=== PATIENT | female | born 1980 | race Caucasian/White ===

== ENCOUNTER 2017-03-31 10:29 | Emergency (ER) | payer MEDICAID ==
[2016-02-03 06:25] VITALS: BMI 47.1
[~2017-03-31 10:29] MED LIST: ATIVAN1 MG PO; BENICAR20 MG PO; HYDROCODONE-APA1 TAB PO; IPRAT-ALBUT 0.5-3 ML UPD; LEVAQUIN500 MG PO; LYRICA75 MG PO; PROVENTIL HFA6.7 GM INH; SAVELLA50 MG PO; STERAPRED DS 1010 MG PO; SYMBICORT 16010.2 GM INH; TESSALON PERLE100 MG PO; VITAMIN D31000 UNI2 PO
== END 2017-03-31 13:33 | disposition home or self-care (01) ==
LOC: D.ER 10:29
DX: O26.893 Other specified pregnancy related conditions, third trimester (principal); Z3A.35 35 weeks gestation of pregnancy; L02.416 Cutaneous abscess of left lower limb; I10 Essential (primary) hypertension; J44.9 Chronic obstructive pulmonary disease, unspecified

== ENCOUNTER 2017-05-02 15:21 | Emergency (ER) | payer MEDICAID ==
[2016-02-03 06:25] VITALS: BMI 47.1
== END 2017-05-02 18:35 | disposition home or self-care (01) ==
LOC: D.ER 15:21
DX: O90.0 Disruption of cesarean delivery wound (principal); J44.9 Chronic obstructive pulmonary disease, unspecified; I10 Essential (primary) hypertension

== ENCOUNTER 2017-09-23 16:44 | Emergency (ER) | payer MEDICAID ==
[2016-02-03 06:25] VITALS: BMI 47.1
== END 2017-09-23 20:19 | disposition home or self-care (01) ==
LOC: D.ER 16:44
DX: S50.01XA Contusion of right elbow, initial encounter (principal); S40.011A Contusion of right shoulder, initial encounter; W18.2XXA Fall in (into) shower or empty bathtub, initial encounter; Y93.E1 Activity, personal bathing and showering; Y92.012 Bathroom of single-family (private) house as the place of occurrence of the external cause; J44.9 Chronic obstructive pulmonary disease, unspecified; I10 Essential (primary) hypertension

== ENCOUNTER → 2017-09-30 08:00 | Outpatient (CLI) | payer MEDICAID ==
[2016-02-03 06:25] VITALS: BMI 47.1
== END | disposition home or self-care (01) ==
LOC: D.US 08:00
DX: I10 Essential (primary) hypertension (principal)

== ENCOUNTER → 2018-02-01 17:30 | Outpatient (CLI) | payer MEDICARE ==
[2016-02-03 06:25] VITALS: BMI 47.1
[~2018-02-01 17:30] MED LIST changes: +ALEVE220 MG PO; +AMITRIPTYLINE100 MG PO; +FAMOTIDINE10 MG PO; +FLUTICASONE PRO16 GM NASAL; +HYDRALAZINE HCL25 MG PO; +IMITREX50 MG PO; +LYRICA100 MG PO; +NORMODYNE / TR300 MG PO; +PLAQUENIL200 MG PO; +PREVACID SOLUTA30 MG PO; +ROBAXIN500 MG PO
[2018-02-01 19:38] LABS: CALC OSMOLALITY 282 mosm/kg (275-300); CALCIUM 9.2 mg/dL (8.5-10.1); CARBON DIOXIDE 20.4 mmol/L (21.0-32.0); CHLORIDE - SERUM 105 mmol/L (98-107); CREATININE - SERUM 0.8 mg/dL (0.6-1.3); POTASSIUM - SERUM 4.3 mmol/L (3.5-5.1); SODIUM 140 mmol/L (136-145); UREA NITROGEN 12 mg/dL (7-18); eGFR NON AFRICAN AMERICAN 86 mL/min (90-120)
[2018-02-01 19:46] LABS: GLUCOSE 175 mg/dL (74-106)
== END | disposition home or self-care (01) ==
LOC: D.LABREF 17:30
PROVIDERS: Internal Medicine Cardiovascular Disease
DX: I10 Essential (primary) hypertension (principal)

== ENCOUNTER 2018-02-24 18:29 | Emergency (ER) | payer MEDICARE ==
[~2018-02-24] VITALS: Ht 170.2 cm; Wt 140.9 kg
[~2018-02-24 18:29] MED LIST changes: -ALEVE220 MG PO; -AMITRIPTYLINE100 MG PO; -FAMOTIDINE10 MG PO; -FLUTICASONE PRO16 GM NASAL; -HYDRALAZINE HCL25 MG PO; -IMITREX50 MG PO; -LYRICA100 MG PO; -NORMODYNE / TR300 MG PO; -PLAQUENIL200 MG PO; -PREVACID SOLUTA30 MG PO; -ROBAXIN500 MG PO
[2018-02-24 18:35] VITALS: Ht 170.2 cm; Wt 140.9 kg
[2018-02-24] MEDS ORDERED: AMITRIPTYLINE100 MG PO (18:37)
[2018-02-24] MEDS ORDERED: FLUTICASONE PRO16 GM NASAL (18:38)
[2018-02-24] MEDS ORDERED: FAMOTIDINE10 MG PO (18:38)
[2018-02-24] MEDS ORDERED: HYDRALAZINE HCL25 MG PO (18:39)
[2018-02-24] MEDS ORDERED: HYDROCODONE-APA1 TAB PO (18:39)
[2018-02-24] MEDS ORDERED: PREVACID SOLUTA30 MG PO (18:40)
[2018-02-24] MEDS ORDERED: NORMODYNE / TR300 MG PO (18:41)
[2018-02-24] MEDS ORDERED: ROBAXIN500 MG PO (18:42)
[2018-02-24] MEDS ORDERED: IMITREX50 MG PO (18:42)
[2018-02-24] MEDS ORDERED: ALEVE220 MG PO (18:43)
[2018-02-24] MEDS ORDERED: PLAQUENIL200 MG PO (18:43)
[2018-02-24] MEDS ORDERED: LYRICA100 MG PO (18:44)
[2018-02-24 19:51] LABS: BASOPHILS 0.5 % (0-2); EOSINOPHILS 3.9 % (0-7); HEMATOCRIT 39.5 % (36.0-48.0); HEMOGLOBIN 12.5 g/dL (12-16); IMMATURE GRANULOCYTES 0.1 % (0-5); LYMPHOCYTES 33.4 % (15-50); MCH 27.7 pg (26.0-34.0); MCHC 31.6 g/dL (31.0-37.0); MCV 87.4 fL (80.0-100.0); MEAN PLATELET VOLUME 11.2 fL (7.4-10.4); MONOCYTES 6.2 % (2-11); NEUTROPHILS 55.9 % (40-80); PLATELET COUNT 303 10x3/uL (130-400); RBC 4.52 10x6/uL (4.00-5.40); RDW 14.9 % (11.5-14.5); WBC 8.8 10x3/uL (4.8-10.8)
[2018-02-24 20:11] LABS: APTT 31.7 SECONDS (22.8-39.4)
[2018-02-24 20:12] LABS: INR 1.18 (0.85-1.17); PROTIME 14.6 SECONDS (11.6-15.0)
[2018-02-24 20:18] LABS: ALBUMIN 3.5 g/dL (3.4-5.0); ALKALINE PHOSPHATASE 119 U/L (46-116); ALT (SGPT) 21 U/L (10-68); BILIRUBIN - TOTAL 0.19 mg/dL (0.2-1.3); CALC OSMOLALITY 285 mosm/kg (275-300); CALCIUM 8.7 mg/dL (8.5-10.1); CARBON DIOXIDE 27.2 mmol/L (21.0-32.0); CHLORIDE - SERUM 108 mmol/L (98-107); GLUCOSE 130 mg/dL (74-106); POTASSIUM - SERUM 3.6 mmol/L (3.5-5.1); SODIUM 143 mmol/L (136-145); UREA NITROGEN 10 mg/dL (7-18); eGFR NON AFRICAN AMERICAN 67 mL/min (90-120)
[2018-02-24 20:29] LABS: CKMB 0.5 U/L (0.0-3.6); LIPASE 149 U/L (73-393)
[2018-02-24 20:30] LABS: TROPONIN-I < 0.017 ng/mL (0.000-0.060)
[2018-02-25 00:34] VITALS: BP 142/85
== END 2018-02-25 00:35 | disposition home or self-care (01) ==
LOC: D.ER 18:29
PROVIDERS: Family Medicine
DX: I11.0 Hypertensive heart disease with heart failure (principal); I50.20 Unspecified systolic (congestive) heart failure; G62.9 Polyneuropathy, unspecified; J44.9 Chronic obstructive pulmonary disease, unspecified; K21.9 Gastro-esophageal reflux disease without esophagitis; F17.200 Nicotine dependence, unspecified, uncomplicated; R00.0 Tachycardia, unspecified

== ENCOUNTER 2018-06-18 11:48 | Emergency (ER) | payer MEDICARE ==
[~2018-06-18] VITALS: Ht 170.2 cm; Wt 145.5 kg
[~2018-06-18 11:48] MED LIST changes: +ALEVE220 MG PO; +AMITRIPTYLINE100 MG PO; +FAMOTIDINE10 MG PO; +FLUTICASONE PRO16 GM NASAL; +HYDRALAZINE HCL25 MG PO; +IMITREX50 MG PO; +LYRICA100 MG PO; +NORMODYNE / TR300 MG PO; +PLAQUENIL200 MG PO; +PREVACID SOLUTA30 MG PO; +ROBAXIN500 MG PO
[2018-06-18 11:55] VITALS: Ht 170.2 cm; Wt 145.5 kg
[2018-06-18] MEDS ORDERED: AZULFIDINE500 MG PO (11:59)
[2018-06-18] MEDS ORDERED: [UNRECOGNIZED DRUG - OTHER] (12:01)
[2018-06-18] MEDS ORDERED: CARDIA (12:02)
[2018-06-18] MEDS ORDERED: FOLIC ACID1 MG PO (12:02)
[2018-06-18] MEDS ORDERED: VIBRAMYCIN 100100 MG PO (12:50)
[2018-06-18] MEDS ORDERED: VOLTAREN75 MG PO (12:50)
[2018-06-18 13:20] VITALS: BP 165/96
== END 2018-06-18 13:21 | disposition home or self-care (01) ==
LOC: D.ER 11:48
DX: L03.211 Cellulitis of face (principal); I10 Essential (primary) hypertension; J44.9 Chronic obstructive pulmonary disease, unspecified; J45.909 Unspecified asthma, uncomplicated; F17.200 Nicotine dependence, unspecified, uncomplicated

== ENCOUNTER → 2018-06-20 08:42 | Outpatient (CLI) | payer MEDICARE ==
[2018-06-18 11:55] VITALS: BMI 50.2
[~2018-06-20 08:42] MED LIST changes: +AZULFIDINE500 MG PO; +CARDIA; +FOLIC ACID1 MG PO; +VIBRAMYCIN 100100 MG PO; +VOLTAREN75 MG PO; +[UNRECOGNIZED DRUG - OTHER]
== END | disposition home or self-care (01) ==
LOC: D.RT 08:42
DX: J44.9 Chronic obstructive pulmonary disease, unspecified (principal)

== ENCOUNTER 2018-07-21 12:27 | Emergency (ER) | payer MEDICARE ==
[~2018-07-21] VITALS: Ht 170.2 cm; Wt 138.6 kg
[2018-07-21 12:30] VITALS: Ht 170.2 cm; Wt 138.6 kg
[2018-07-21 17:53] VITALS: BP 178/90
== END 2018-07-21 17:54 | disposition home or self-care (01) ==
LOC: D.ER 12:27
DX: S99.912A Unspecified injury of left ankle, initial encounter (principal); X58.XXXA Exposure to other specified factors, initial encounter; Y93.89 Activity, other specified; Y92.89 Other specified places as the place of occurrence of the external cause; I10 Essential (primary) hypertension; J44.9 Chronic obstructive pulmonary disease, unspecified; F17.200 Nicotine dependence, unspecified, uncomplicated

== ENCOUNTER → 2018-08-26 15:37 | Outpatient (CLI) | payer MEDICARE ==
[2018-07-21 12:30] VITALS: BMI 47.9
== END | disposition home or self-care (01) ==
LOC: D.MRI 15:37
DX: M84.372A Stress fracture, left ankle, initial encounter for fracture (principal); X58.XXXA Exposure to other specified factors, initial encounter

== ENCOUNTER → 2018-09-28 10:08 | Outpatient (CLI) | payer MEDICARE ==
[2018-07-21 12:30] VITALS: BMI 47.9
== END | disposition home or self-care (01) ==
LOC: D.RT 10:00
DX: J44.9 Chronic obstructive pulmonary disease, unspecified (principal)

== ENCOUNTER → 2018-10-11 12:07 | Outpatient (CLI) | payer MEDICARE ==
[2018-07-21 12:30] VITALS: BMI 47.9
[2018-10-11 12:19] LABS: CALC OSMOLALITY 280 mosm/kg (275-300); CALCIUM 8.6 mg/dL (8.5-10.1); CARBON DIOXIDE 25.8 mmol/L (21.0-32.0); CHLORIDE - SERUM 106 mmol/L (98-107); CREATININE - SERUM 0.8 mg/dL (0.6-1.3); GLUCOSE 99 mg/dL (74-106); POTASSIUM - SERUM 4.2 mmol/L (3.5-5.1); SODIUM 141 mmol/L (136-145); UREA NITROGEN 12 mg/dL (7-18); eGFR NON AFRICAN AMERICAN 86 mL/min (90-120)
== END | disposition home or self-care (01) ==
LOC: D.LABREF 12:07
PROVIDERS: Internal Medicine Cardiovascular Disease
DX: I10 Essential (primary) hypertension (principal)

== ENCOUNTER → 2018-10-27 12:30 | Outpatient (CLI) | payer MEDICARE ==
[2018-07-21 12:30] VITALS: BMI 47.9
== END | disposition home or self-care (01) ==
LOC: D.RT 10-24 11:00
PROVIDERS: ATTEND Internal Medicine Pulmonary Disease
DX: J44.9 Chronic obstructive pulmonary disease, unspecified (principal); R93.89 Abnormal findings on diagnostic imaging of other specified body structures

== ENCOUNTER → 2019-01-11 08:44 | Outpatient (CLI) | payer MEDICARE ==
[~2019-01-11] VITALS: Ht 170.2 cm; Wt 152.0 kg
[2019-01-11 10:52] VITALS: Ht 170.2 cm; Wt 152.0 kg
== END | disposition home or self-care (01) ==
LOC: D.FANS 12-06 13:00
PROVIDERS: ATTEND Surgery
DX: E66.01 Morbid (severe) obesity due to excess calories (principal); E13.42 Other specified diabetes mellitus with diabetic polyneuropathy

== ENCOUNTER 2019-01-31 19:24 | Emergency (ER) | payer MEDICARE ==
[~2019-01-31 19:24] MED LIST changes: +VITAMIN D250000 UNIT PO; -VITAMIN D31000 UNI2 PO
[2019-01-31 19:28] VITALS: BMI 52.6
[2019-01-31] MEDS ORDERED: VOLTAREN75 MG PO (21:19)
[2019-01-31] MEDS ORDERED: VIBRAMYCIN 100100 MG PO (21:19)
[2019-01-31 21:30] VITALS: BP 147/90
== END 2019-01-31 21:30 | disposition home or self-care (01) ==
LOC: D.ER 19:24
DX: L03.116 Cellulitis of left lower limb (principal)

== ENCOUNTER 2019-02-02 08:31 | Outpatient (CLI) | payer MEDICARE ==
[~2019-02-02 08:31] MED LIST changes: -VITAMIN D250000 UNIT PO; +VITAMIN D31000 UNI2 PO
== END 2019-02-02 10:25 | disposition home or self-care (01) ==
LOC: D.OPS 08:31
PROVIDERS: ATTEND Surgery
DX: E66.01 Morbid (severe) obesity due to excess calories (principal)

== ENCOUNTER 2019-03-03 10:48 | Inpatient (IN) | payer MEDICARE ==
[~2019-03-03] VITALS: Ht 170.2 cm; Wt 161.8 kg
[~2019-03-03 10:48] MED LIST changes: +VITAMIN D250000 UNIT PO; -VITAMIN D31000 UNI2 PO
[2019-03-07] MEDS ORDERED: ALBUTEROL SULF8.5 GM INH (10:50)
[2019-03-07] MEDS ORDERED: ENBREL25 MG/0.5 SQ (10:52)
[2019-03-07] MEDS ORDERED: HYDROXYCHLOR PO (10:52)
[2019-03-07] MEDS ORDERED: METHOTREXATE2.5 MG INJ (10:54)
[2019-03-07] MEDS ORDERED: PROTONIX40 MG PO (10:55)
[2019-03-07] MEDS ORDERED: FUROSEMIDE40 MG PO (10:56)
[2019-03-07] MEDS ORDERED: CLARITIN 10 MG10 MG PO (10:57)
[2019-03-07] MEDS ORDERED: AMBIEN10 MG PO (10:57)
[2019-03-07] MEDS ORDERED: AZELASTINE137 MCG/0. NASAL (10:58)
[2019-03-07] MEDS ORDERED: NORMODYNE / TR300 MG PO (10:59)
[2019-03-07] MEDS ORDERED: CARDURA2 MG PO (10:59)
[2019-03-07] MEDS ORDERED: K-DUR20 MEQ PO (11:00)
[2019-03-07] MEDS ORDERED: HYDROCODON-ACE1 EA10 PO (11:01)
[2019-03-07] MEDS ORDERED: LYRICA150 MG PO (11:02)
[2019-03-07] MEDS ORDERED: BACLOFEN20 M1 PO (11:03)
[2019-03-07] MEDS ORDERED: CATAPRES0.2 MG PO (11:07)
[2019-03-07 12:33] LABS: HEMATOCRIT 36.8 % (36.0-48.0); HEMOGLOBIN 11.9 g/dL (12-16); MCH 28.6 pg (26.0-34.0); MCHC 32.3 g/dL (31.0-37.0); MCV 88.5 fL (80.0-100.0); MEAN PLATELET VOLUME 11.1 fL (7.4-10.4); RBC 4.16 10x6/uL (4.00-5.40); RDW 16.2 % (11.5-14.5); WBC 6.5 10x3/uL (4.8-10.8)
[2019-03-07 12:36] LABS: ANION GAP 11.7 mmol/L (8-16); CALCIUM 8.8 mg/dL (8.5-10.1); CARBON DIOXIDE 27.4 mmol/L (21.0-32.0); POTASSIUM - SERUM 4.1 mmol/L (3.5-5.1)
[2019-03-08 06:46] VITALS: BP 115/68; BMI 55.6
[2019-03-08 10:44] VITALS: BP 146/82
[2019-03-08 11:45] VITALS: BP 146/82; Ht 170.2 cm; Wt 161.8 kg
--- NOTE | 2019-03-08 19:30 | NUR ---
PT ALERT AND ORIENTED. FAMILY AT BEDSIDE. PT WITH HOB ELEVATED TO UPRIGHT POSITION. FERNANDEZ SRIGHT HAND IV THAT IS INFUSING LR AT 150 PER ORDER. MORPHINE CLOCK REPAIRER WITH LIMITS AT 09/01/09. PT STATES PAIN MEDICINE IS EFFECTIVE. ABDOMEN PRESENTS WITH 5 LAP SITE THAT HAVE STERI STRIPS APPLIED. TWO LAP SITES ON THE LOWER ABDOMEN HACE SLIGHT REDNESS AROUND, PT DENIES PAIN TO LOWER SITES BUT STATES THE CENTER STERI STRIP TO IN THE UPPER ABDOMEN BOTHERS PT MORE THAN ANY OTHERS. REVIEWED GASTRIC SLEEVE POST OP INSTRUCTIONS WITH PATIENT AND PT HAS COPY OF INSTRUCTIONS IN ROOM. NO STRAWS OR CARBINATED DRINKS OF ANY KIND IN ROOM. PT VERBALIZES UNDERSTANDING OF ORDER. DENIES FURTHER NEEDS AT THIS TIME. WILL CONTINUE PLAN OF CARE.
--- NOTE | 2019-03-08 19:43 | NUR ---
PT RESTING IN BED. ZOFRAN GIVEN FOR NAUSEA AND MYLICON FOR "BELCHING" PER MD ORDER. 30 ML OF CLD Q 30 MIN. PT "UNDERSTAND AND IS COMPLIANT WITH DIET." PT AMBULATED AT 1700 50 FEET. NO S/S OF ACUTE DISTRESS. CL IN PLACE.
[2019-03-08 20:00] VITALS: BP 168/85
--- NOTE | 2019-03-08 20:30 | NUR ---
PT AMBULATED UNIT PER ORDER. MINIMAL ASSIST PROVIDED. PATIENT TOLERATED WELL.
[2019-03-09] VITALS: BP 151/87
--- NOTE | 2019-03-09 02:34 | NUR ---
PT UP AT BEDSIDE. REMAINS IN ROOM. DENIES NEEDS AT THIS TIME. STATES "I JUST HAVE A HARD TIME GETTING COMFORTABLE." HAS CALL LIGHT IN REACH.
[2019-03-09 04:00] VITALS: BP 151/87
[2019-03-09 04:58] LABS: BASOPHILS 0.2 % (0-2); EOSINOPHILS 0.3 % (0-7); HEMATOCRIT 34.5 % (36.0-48.0); HEMOGLOBIN 11.1 g/dL (12-16); IMMATURE GRANULOCYTES 0.2 % (0-5); LYMPHOCYTES 17.4 % (15-50); MCH 28.1 pg (26.0-34.0); MCHC 32.2 g/dL (31.0-37.0); MCV 87.3 fL (80.0-100.0); MEAN PLATELET VOLUME 11.5 fL (7.4-10.4); MONOCYTES 8.1 % (2-11); NEUTROPHILS 73.8 % (40-80); PLATELET COUNT 251 10x3/uL (130-400); RBC 3.95 10x6/uL (4.00-5.40); RDW 15.5 % (11.5-14.5)
[2019-03-09 05:13] LABS: ALBUMIN 3.3 g/dL (3.4-5.0); ALKALINE PHOSPHATASE 92 U/L (46-116); ALT (SGPT) 33 U/L (10-68); BILIRUBIN - TOTAL 0.33 mg/dL (0.2-1.3); CARBON DIOXIDE 24.8 mmol/L (21.0-32.0); CHLORIDE - SERUM 101 mmol/L (98-107); GLUCOSE 93 mg/dL (74-106); POTASSIUM - SERUM 3.8 mmol/L (3.5-5.1); PROTEIN - SERUM 6.4 g/dL (6.4-8.2); SODIUM 136 mmol/L (136-145)
[2019-03-09 05:17] LABS: WBC 10.5 10x3/uL (4.8-10.8)
[2019-03-09 05:27] LABS: CALC OSMOLALITY 269 mosm/kg (275-300); CREATININE - SERUM 0.7 mg/dL (0.6-1.3); UREA NITROGEN 7 mg/dL (7-18); eGFR NON AFRICAN AMERICAN > 90 mL/min (90-120)
--- NOTE | 2019-03-09 06:35 | NUR ---
I have reviewed this patient and I concur with the Shift Assessment completed by the Licensed Practical Nurse today this shift.
--- NOTE | 2019-03-09 07:18 | NUR ---
PT IS RESTING IN BED WITH EYES OPEN. RESRPIATIONS ARE EVEN AND UNLABORED. PT REPORTS PAIN TO ABDOMINAL AREA. MAIL MESSENGER MORPHINE AVAILABLE. PT DENIES PRESENCE OF N/V AT THIS TIME. PT EDUCATED ON BARIATRIC DIET RESTRICTIONS. INSTRUCTION PAPER IS AT BEDSIDE. PT VERBALIZES UNDERSTANDING. PT EDUCATED ON AMBULATION. PT REPORTS THAT SHE HAS BEEN AMBULATING IN THE [place] THE NIGHT BEFORE AND HAS AMBULATED IN THE ROOM INDEPENDENTLY WITHOUT DIFFICULTY. PT REPORTS BELCHING AND PASSING GAS. BS ARE HYPOACTIVE X 4 QUADRANTS. LAPSITES X 6 NOTED. UMBILICAL SITE WITH REDNESS/TENDERNESS. SCDS ARE ON. PT DENIES FURTHER NEEDS. FAMILY IS AT BEDSIDE. BED IS IN THE LOWEST POSITION. CALL LIGHT AND BEDSIDE TABLE ARE WITHIN REACH. SIDE RAILS X 2. WILL CONT TO MONITOR.
[2019-03-09 08:59] VITALS: BP 156/85
[2019-03-09] MEDS ORDERED: HYDROCODON-ACE1 EAC7 PO (09:24)
[2019-03-09] MEDS ORDERED: ZOFRAN ODT4 MG/UDTAB PO (09:24)
--- NOTE | 2019-03-09 10:55 | NUR ---
Nutrition Consult: Consult received to review Bariatric diet with pt. Reviewed guidelines for post op bariatric diet with pt. She stated that she had no questions at this time. Encouraged pt to contact RD with any questions/concerns.
--- NOTE | 2019-03-09 12:24 | NUR ---
DC IV WITH TIP INTACT. DC INSTRUCTIONS AND EDUCATION DONE WITH PT AND FAMILY. ALL BELONGINGS TAKEN DOWN BY . VOLUNTEER ASSITED PT OFF FLOOR VIA WC. NO S/S OF ACUTE DISTRESS.
== END 2019-03-09 12:44 | disposition home or self-care (01) | DRG 621 ==
LOC: D.SDCHOLD 03-08 05:00 → D.MS 03-08 05:00 → D.SDCHOLD 03-08 08:00 → D.MS 03-08 10:33
PROVIDERS: Anesthesiology; ADMIT Surgery; ATTEND Surgery
PROC: 0DB64Z3 Excision of Stomach, Percutaneous Endoscopic Approach, Vertical (ICD-10-PCS; principal; 2019-03-08 08:00)
DX: E66.01 Morbid (severe) obesity due to excess calories (principal); Z68.43 Body mass index [BMI] 50.0-59.9, adult; I10 Essential (primary) hypertension; K21.9 Gastro-esophageal reflux disease without esophagitis; E11.9 Type 2 diabetes mellitus without complications; J44.9 Chronic obstructive pulmonary disease, unspecified

== ENCOUNTER → 2019-05-08 09:05 | Outpatient (CLI) | payer MEDICARE ==
[2019-03-08 11:45] VITALS: BMI 55.9
[~2019-05-08 09:05] MED LIST changes: +ALBUTEROL SULF8.5 GM INH; +AMBIEN10 MG PO; +AZELASTINE137 MCG/0. NASAL; +BACLOFEN20 M1 PO; +CARDURA2 MG PO; +CATAPRES0.2 MG PO; +CLARITIN 10 MG10 MG PO; +ENBREL25 MG/0.5 SQ; +FUROSEMIDE40 MG PO; +HYDROCODON-ACE1 EA10 PO; +HYDROCODON-ACE1 EAC7 PO; +HYDROXYCHLOR PO; +K-DUR20 MEQ PO; +LYRICA150 MG PO; +METHOTREXATE2.5 MG INJ; +PROTONIX40 MG PO; +ZOFRAN ODT4 MG/UDTAB PO
== END | disposition home or self-care (01) ==
LOC: D.OPS 02-02 09:30 → D.RT 09:00
PROVIDERS: ATTEND Internal Medicine Pulmonary Disease
DX: J45.909 Unspecified asthma, uncomplicated (principal)

== ENCOUNTER 2019-08-07 15:56 | Emergency (ER) | payer MEDICARE ==
[~2019-08-07] VITALS: Ht 170.2 cm; Wt 122.7 kg
[2019-08-07 16:08] VITALS: Ht 170.2 cm; Wt 122.7 kg
[2019-08-07] MEDS ORDERED: HUMIRA (16:12)
[2019-08-07] MEDS ORDERED: VIBRAMYCIN 100100 MG PO (17:44)
== END 2019-08-07 18:25 | disposition home or self-care (01) ==
LOC: D.ER 15:56
DX: H00.012 Hordeolum externum right lower eyelid (principal); I10 Essential (primary) hypertension; G62.9 Polyneuropathy, unspecified; J44.9 Chronic obstructive pulmonary disease, unspecified; Z72.0 Tobacco use

== ENCOUNTER 2020-05-24 11:28 | Emergency (ER) | payer MEDICARE ==
[~2020-05-24] VITALS: Ht 170.2 cm; Wt 122.7 kg
[~2020-05-24 11:28] MED LIST changes: +HUMIRA
[2020-05-24 11:34] VITALS: BP 157/101
[2020-05-24] MEDS ORDERED: CLEOCIN HCL300 MG PO (11:53)
== END 2020-05-24 13:44 | disposition home or self-care (01) ==
LOC: D.ER 11:28
DX: S90.31XA Contusion of right foot, initial encounter (principal); S90.811A Abrasion, right foot, initial encounter; I10 Essential (primary) hypertension; J44.9 Chronic obstructive pulmonary disease, unspecified; G62.9 Polyneuropathy, unspecified; K21.9 Gastro-esophageal reflux disease without esophagitis; Z72.0 Tobacco use; W22.8XXA Striking against or struck by other objects, initial encounter; Y93.9 Activity, unspecified; Y92.9 Unspecified place or not applicable